=== PATIENT | female | born 1950 | race Caucasian/White ===

== ENCOUNTER 2023-04-28 05:51 | Day surgery (SDC) | payer MEDICARE, SELFPAY ==
[2023-02-28 10:51] VITALS: BMI 22.5
[2023-04-09 13:22] VITALS: BMI 22.1
--- NOTE | 2023-04-09 13:41 | PC.NURSE ---
PT STATES SHE IS IN A DOUBLE BLIND RESEARCH STUDY FOR HEART DISEASE. SHE IS POSSIBLY TAKING OLTASIRAN. OR A PLACEBO.
--- NOTE | 2023-04-25 13:25 | PM.HPGS ---
History of Present Illness History of Present Illness Consent: Risks, benefits, and alternatives have been discussed and questions answered. Patient agrees to proceed with procedure. Chief complaint: Family History of Colon Cancer Narrative: Tomasa Saldivar is a 73 year old female Referred for colon cancer screening. She has a family history of colon cancer. Review of Systems Review of Systems: All systems reviewed & are unremarkable except as noted in HPI and below PMFSH Social History Social History Smoking packs per day: 1 Smoking cigarettes per day: 20.0 Years smoked: 55 Smoking pack-years: 55.00 Smoking status: Heavy tobacco smoker Tobacco type: cigarettes Alcohol intake: current Drinks per week: 1 Substance use: never Substance use type: does not use Living arrangements: alone Spiritual care concerns: No Meds Home Medications and Allergies Home Medications Medication Instructions Recorded Confirmed Type alendronate 70 mg tablet 70 mg PO WEEKLY 04/09/23 04/28/23 History aspirin 81 mg tablet,delayed 81 mg PO BID 04/09/23 04/28/23 History release (Adult Low Dose Aspirin) atorvastatin 40 mg tablet 40 mg PO DAILY 04/09/23 04/28/23 History losartan 100 mg tablet 100 mg PO DAILY 04/09/23 04/28/23 History metoprolol tartrate 25 mg tablet 12.5 mg PO BID 04/09/23 04/28/23 History Allergies Allergy/AdvReac Type Severity Reaction Status Date / Time erythromycin base Allergy Intermediate Fever Verified 04/28/23 06:59 Penicillins Allergy Intermediate Fever Verified 04/28/23 06:59 Exam Const: General: alert Orientation/consciousness: patient oriented x3 Resp: Auscultation: clear to auscultation bilaterally Cardio: Rhythm: regular rhythm GI: GI Palp: Yes Soft to palpation and No Tenderness to palpation present (GI) Neuro: General: patient oriented x3 Assessment and Plan Assessment and plan (1) Colon cancer screening: Code(s): Z12.11 - Encounter for screening for malignant neoplasm of colon Status: Acute Assessment and Plan: Colonoscopy with possible biopsy or polypectomy or cautery or injection of substances.
[2023-04-28 07:35] VITALS: BP 112/64; PULSE 77; RESP 16; TEMP 36.8; O2SAT 98
[2023-04-28] MEDS: LACTATED RINGERS 1,000 ML 150 ML IV CONT (07:37)
--- NOTE | 2023-04-28 07:37 | P.PNAN_ITS ---
Anes - Initial Pre Proc Eval Procedure: Operation Date: 04/28/23 08:00 Proposed Procedures p Diagnostic Colonoscopy - Larry Hadley MD Date/Time: 04/28/23 07:37 Surgeon: Larry Hadley MD Pre Op Diagnosis: Family History of Colon Cancer Patient Data Age: 73 Gender: F Height: 1.57 m Weight: 55 kg Last Vital Signs Temp 36.8 C 04/28/23 07:35 Pulse 77 04/28/23 07:35 Resp 16 04/28/23 07:35 BP 112/64 04/28/23 07:35 Pulse Ox 98 04/28/23 07:35 O2 Del Method Room Air 04/28/23 07:35 Allergies Allergy/AdvReac Type Severity Reaction Status Date / Time erythromycin base Allergy Intermediate Fever Verified 04/28/23 06:59 Penicillins Allergy Intermediate Fever Verified 04/28/23 06:59 Home Medications Medication Instructions Recorded Confirmed Type alendronate 70 mg tablet 70 mg PO WEEKLY 04/09/23 04/28/23 History aspirin 81 mg tablet,delayed 81 mg PO BID 04/09/23 04/28/23 History release (Adult Low Dose Aspirin) atorvastatin 40 mg tablet 40 mg PO DAILY 04/09/23 04/28/23 History losartan 100 mg tablet 100 mg PO DAILY 04/09/23 04/28/23 History metoprolol tartrate 25 mg tablet 12.5 mg PO BID 04/09/23 04/28/23 History Patient hx anesthesia problems: none Family hx anesthesia problems: none Results Review: All pre-operative results and documents have been reviewed as part of the pre-o perative evaluation. [facility] Social History Social History Smoking packs per day: 1 Smoking cigarettes per day: 20.0 Years smoked: 55 Smoking pack-years: 55.00 Smoking status: Heavy tobacco smoker Tobacco type: cigarettes Alcohol intake: current Drinks per week: 1 Substance use: never Substance use type: does not use Living arrangements: alone Spiritual care concerns: No Anes - Eval Final PreProcedure Day of Procedure 04/28/23 07:37 Patient weight: normal Heart: regular rate and rhythm Lungs: decreased breath sounds Airway: Mallampati scale class II Neurological: alert and oriented Last oral intake: >/= 8 hours ASA classification: III Emergent: no Anesthetic plan: proceed Anesthesia type and monitoring: general GIVS and standard monitoring Results Review: All pre-operative results and documents have been reviewed as part of the pre- operative evaluation. Informed Consent: The patient's anesthetic plan and its attendant risks and benefits were discussed with the patient/family/POA. Questions were solicited and answers provided to the satisfaction of the patient/family/POA.
[2023-04-28 08:22] VITALS: BP 103/73; PULSE 78; RESP 16; O2SAT 100
[2023-04-28 08:32] VITALS: BP 110/57; PULSE 75; RESP 16; O2SAT 100
[2023-04-28 08:42] VITALS: BP 102/73; PULSE 75; RESP 16; O2SAT 99
--- NOTE | 2023-04-28 08:43 | WPDANESPN ---
Anes - Prog Note Post-Op Date/Time: 04/28/23 08:43 Cardiovascular status: normal Respiratory status: normal Airway patency: baseline Mental status: baseline Post-Op hydration status: normal Vital Signs: Last Vital Signs Temp 36.8 C 04/28/23 07:35 Pulse 75 04/28/23 08:32 Resp 16 04/28/23 08:32 BP 110/57 L 04/28/23 08:32 Pulse Ox 100 04/28/23 08:32 O2 Del Method Room Air 04/28/23 08:32 Pain Score (VAS): 0 I/O: Intake & Output 04/27/23 04/28/23 04/28/23 23:59 07:59 15:59 Intake Total 600 Balance 600 Patient Feedback: Patient satisfied with anesthetic care.
== END 2023-04-28 08:59 | disposition home or self-care (01) ==
PROVIDERS: PCP Internal Medicine; Visit Provider Internal Medicine Gastroenterology
PROC: 0DJD8ZZ Inspection of Lower Intestinal Tract, Via Natural or Artificial Opening Endoscopic (ICD-10-PCS; CPT 45378; principal; 2023-04-28 08:00)
DX: Z12.11 Encounter for screening for malignant neoplasm of colon (principal); D12.5 Benign neoplasm of sigmoid colon; D12.8 Benign neoplasm of rectum; K57.30 Diverticulosis of large intestine without perforation or abscess without bleeding
CPT/HCPCS: 45385; 45380

== ENCOUNTER 2023-04-28 07:00 | Outpatient (NON) | payer MEDICARE, SELFPAY | END 2023-04-28 07:01 | disposition home or self-care (01) | PROVIDERS: PCP Internal Medicine; Visit Provider Internal Medicine Gastroenterology | DX: Z12.11 Encounter for screening for malignant neoplasm of colon (principal); K62.1 Rectal polyp; D12.5 Benign neoplasm of sigmoid colon | CPT/HCPCS: 88305 ==